=== PATIENT | female | born 1985 | race Two or more races ===

== ENCOUNTER 2019-03-22 13:16 | Emergency (ER) | payer SELFPAY ==
[2019-03-22 13:18] VITALS: Wt 72.3 kg
[2019-03-22] MEDS ORDERED: ULTRAM50 MG PO (14:46)
[2019-03-22 15:43] VITALS: BP 126/62
== END 2019-03-22 15:44 | disposition home or self-care (01) ==
LOC: D.ER 13:16
DX: S29.012A Strain of muscle and tendon of back wall of thorax, initial encounter (principal); X58.XXXA Exposure to other specified factors, initial encounter; Y93.89 Activity, other specified; Y92.89 Other specified places as the place of occurrence of the external cause; M62.838 Other muscle spasm